=== PATIENT | female | born 1995 | race Caucasian/White ===

== ENCOUNTER 2017-11-20 10:25 | Emergency (ER) | payer OTHER ==
[~2017-11-20] VITALS: Ht 165.1 cm; Wt 81.8 kg
[~2017-11-20 10:25] MED LIST: HYDROCODONE-ACE15 ML PO
[2017-11-20 10:33] VITALS: Ht 165.1 cm; Wt 81.8 kg
[2017-11-20 10:55] LABS: BASOPHILS 0.1 % (0-2); EOSINOPHILS 0.1 % (0-7); HEMATOCRIT 46.7 % (36.0-48.0); IMMATURE GRANULOCYTES 0.3 % (0-5); LYMPHOCYTES 7.3 % (15-50); MCH 30.4 pg (26.0-34.0); MCHC 34.3 g/dL (31.0-37.0); MCV 88.8 fL (80.0-100.0); MEAN PLATELET VOLUME 12.2 fL (7.4-10.4); MONOCYTES 1.7 % (2-11); NEUTROPHILS 90.5 % (40-80); PLATELET COUNT 192 10x3/uL (130-400); RBC 5.26 10x6/uL (4.00-5.40); RDW 12.4 % (11.5-14.5); WBC 13.3 10x3/uL (4.8-10.8)
[2017-11-20 10:57] LABS: APPEARANCE CLOUDY (CLEAR); COLOR YELLOW (YELLOW); PH 6.5 (5.0-6.0); SPECIFIC GRAVITY 1.015 (1.005-1.020)
[2017-11-20 10:58] LABS: BILIRUBIN NEGATIVE (NEGATIVE); GLUCOSE NEGATIVE (NEGATIVE); KETONE SMALL mg/dL (NEGATIVE); NITRITE NEGATIVE (NEGATIVE); PROTEIN NEGATIVE (NEGATIVE); UROBILINOGEN NORMAL (NORMAL)
[2017-11-20 11:12] LABS: BACTERIA MANY /hpf (NONE SEEN); EPITHELIAL CELLS 0-5 /hpf (0-5); MUCUS <1+ /lpf (NONE SEEN); RED CELLS - URINE 0-5 /hpf (0-5)
[2017-11-20 11:14] LABS: ALBUMIN 4.8 g/dL (3.4-5.0); ALKALINE PHOSPHATASE 73 U/L (46-116); ALT (SGPT) 22 U/L (10-68); AMYLASE - SERUM 56 U/L (25-115); BILIRUBIN - TOTAL 0.85 mg/dL (0.2-1.3); CALC OSMOLALITY 291 mosm/kg (275-300); CALCIUM 9.5 mg/dL (8.5-10.1); CARBON DIOXIDE 25.2 mmol/L (21.0-32.0); CHLORIDE - SERUM 107 mmol/L (98-107); CREATININE - SERUM 0.8 mg/dL (0.6-1.3); GLUCOSE 88 mg/dL (74-106); LIPASE 76 U/L (73-393); POTASSIUM - SERUM 3.7 mmol/L (3.5-5.1); PROTEIN - SERUM 8.5 g/dL (6.4-8.2); SODIUM 147 mmol/L (136-145); UREA NITROGEN 14 mg/dL (7-18); eGFR NON AFRICAN AMERICAN > 90 mL/min (90-120)
[2017-11-20 11:21] LABS: HCG SERUM NEGATIVE (NEGATIVE)
[2017-11-20] MEDS ORDERED: MACROBID100 MG PO (14:19)
[2017-11-20] MEDS ORDERED: FLAGYL500 MG PO (14:19)
[2017-11-20] MEDS ORDERED: ZOFRAN ODT4 MG/UDTAB PO (14:19)
[2017-11-20 14:28] VITALS: BP 137/86
== END 2017-11-20 14:28 | disposition home or self-care (01) ==
LOC: D.ER 10:25
PROVIDERS: Family Medicine
DX: N39.0 Urinary tract infection, site not specified (principal); K57.90 Diverticulosis of intestine, part unspecified, without perforation or abscess without bleeding; R11.2 Nausea with vomiting, unspecified